=== PATIENT | female | born 1975 | race Hispanic/Latino ===

== ENCOUNTER 2025-02-06 03:27 | Emergency (ER) | payer BC ==
[~2025-02-06] VITALS: Ht 167.6 cm; Wt 54.4 kg
--- NOTE | 2025-02-06 03:59 | NUR ---
PATIENT REPORTS CALLED AMBULANCE BECAUSE SHE WANTED TO HAVE HER SURGICAL WOUND EVALUATED. REPORTS HAD BLADDER SURGERY AT [facility] AND TOLD THE EMS MEDICS TO TRANSP[place] [facility] [place] BROUGHT HER HERE. SHE WANTED TO GO THERE BECAUSE THAT IS WHERE HER SURGERY WAS DONE
--- NOTE | 2025-02-06 04:47 | ERN ---
General Chief Complaint: Abdominal Pain Stated Complaint: ABDOMINAL PAIN Time Seen by MD: 03:44 Source: patient History of Present Illness Initial Comments Patient difficult to understand her voices very soft and she speaks in very short sentences she seems to be inebriated as well. She is a 45-year-old female who was found by police wandering and they brought her here because she was complaining of abdominal pain. She has been drinking. She recently had surgery at [facility] to her bladder but she does not know what type of surgery it is she still has basia in her large midline incision and she would like them to be removed. In addition to complaining of abdominal pain she says she is dizzy and lightheaded. Past medical history includes hepatitis C right leg orthopedic surgery and multiple . Timing/Duration: unsure Allergies: Coded Allergies: No Known Allergies (Unverified Allergy, Unknown, 02/06/25) Past Medical History Past Medical History: No Pertinent History Past Surgical History: None, Surgical History Other: Bladder Surgery, Right leg orthopedic surg Constitutional: (-) chills, (-) diaphoresis, (-) fever, (-) malaise, (-) weakness, (-) other documentation EENTM: (-) eye pain, (-) blurred vision, (-) tearing, (-) double vision, (-) ear pain, (-) ear discharge, (-) nose pain, (-) nose congestion, (-) throat pain, (-) Throat swelling, (-) mouth pain, (-) tooth pain, (-) mouth swelling, (-) other documentation Respiratory: (-) cough, (-) orthopnea, (-) short of breath, (-) stridor, (-) wheezing, (-) other documentation Cardiovascular: (+) chest pain Gastrointestinal/Abdominal: (+) abdominal pain, (+) abdominal distention; (-) nausea, (-) vomiting, (-) diarrhea, (-) constipation, (-) rectal bleeding, (-) dark stool/melena, (-) other documentation Musculoskeletal: (-) Neck pain, (-) back pain, (-) Flank Pain, (-) joint pain, (-) joint swelling, (-) muscle pain, (-) muscle stiffness, (-) gout, (-) other documentation Neuro: (+) altered mental status Physical Exam General Appearance comment Patient asleep in the bed difficult to arouse falling asleep almost immediately afterwards. Head/Face Trauma: No Eye: bilateral eye normal inspection, bilateral eye PERRL, bilateral eye EOMI Ear, Nose, Throat: (+) hearing grossly normal Neck: (+) normal inspection, (+) supple Respiratory: (+) chest non-tender, (+) lungs clear, (+) well ventilated Heart: (+) regular Vascular: (+) no edema Gastrointestinal: (+) soft, (+) bowel sound present, (+) distended, (+) tender Results Laboratory and Microbiology Lab and Micro Result Laboratory Tests Test 02/06/25 05:08 02/06/25 05:54 02/06/25 12:10 White Blood Count 2.3 K/uL (4.8-10.8) L Red Blood Count 2.92 MIL/uL (4.00-5.50) L Hemoglobin 9.7 g/dL (12.0-16.0) L Hematocrit 27.9 % (36-48) L Mean Corpuscular Volume 95.5 fL (79-99) Mean Corpuscular Hemoglobin 33.2 pg (27.0-33.0) H Mean Corpuscular Hemoglobin Concent 34.8 g/dL (32.0-36.0) Red Cell Distribution Width 15.2 % (11.0-15.5) Platelet Count 87 K/uL (130-400) L Mean Platelet Volume 13.1 fL (7.5-10.5) H Immature Granulocyte % (Auto) 0.0 % (0-1) Neutrophils (%) (Auto) 46.7 % (40.0-77.0) Lymphocytes (%) (Auto) 31.9 % (21.0-51.0) Monocytes (%) (Auto) 15.3 % (3.0-13.0) H Eosinophils (%) (Auto) 4.8 % (0.0-8.0) Basophils (%) (Auto) 1.3 % (0.0-5.0) Neutrophils # (Auto) 1.1 K/uL (1.8-7.7) L Lymphocytes # (Auto) 0.7 K/uL (1.0-4.8) L Monocytes # (Auto) 0.4 K/uL (0.1-1.0) Eosinophils # (Auto) 0.11 K/uL (0.00-0.70) Basophils # (Auto) 0.03 K/uL (0.00-0.20) Absolute Immature Granulocyte (auto 0.00 K/uL (0-1) Segmented Neutrophils % 55 % (40-70) Band Neutrophils % 1 % (0-2) Lymphocytes % (Manual) 29 % (22-44) Monocytes % (Manual) 8 % (2-9) Eosinophils % (Manual) 5 % (1-6) Nucleated Red Blood Cells 0.0 % (0.0-0.19) Differential Comment MANUAL DIFFERENTIAL Reactive Lymphocytes 2 % (0-0) H White Cell Morphology Comment See comments Platelet Morphology Comment DECREASED Red Blood Cell Morphology ANISO 1+ Sodium Level 138 mmol/L (136-145) Potassium Level 3.4 mmol/L (3.5-5.1) L Chloride Level 101 mmol/L (101-111) Carbon Dioxide Level 26 mmol/L (21-32) Blood Urea Nitrogen 13 mg/dL (7-18) Creatinine 0.7 mg/dL (0.5-1.0) Glomerular Filtration Rate Calc 108 mL/min (>90) Random Glucose 92 mg/dL (70-105) Lactic Acid Level 0.8 mmol/L (0.8-2.5) Total Calcium 8.8 mg/dL (8.5-10.1) Total Bilirubin 1.2 mg/dL (0.2-1.0) H Aspartate Amino Transf (AST/SGOT) 67 U/L (10-37) H Alanine Aminotransferase (ALT/SGPT) 31 U/L (12-78) Alkaline Phosphatase 56 U/L (50-136) Total Protein 8.1 g/dL (6.0-8.3) Albumin 4.5 g/dL (3.5-5.0) Lipase 130 U/L (16-77) H Serum Test, Qualitative NEGATIVE (NEGATIVE) Serum Alcohol < 3 mg/dL (0-10) Urine Color LIGHT-ORANGE (YELLOW) Urine Appearance TURBID (CLEAR) Urine pH 5.5 (5.0-8.0) Urine Specific [place] 1.017 (1.001-1.031) Urine Protein 50 mg/dL (NEGATIVE) H Urine Glucose (UA) NEGATIVE mg/dL (NEGATIVE) Urine Ketones NEGATIVE mg/dL (NEGATIVE) Urine Occult Blood LARGE (NEGATIVE) H Urine Nitrate NEGATIVE (NEGATIVE) Urine Bilirubin NEGATIVE mg/dL (NEGATIVE) Urine Urobilinogen 0.2 mg/dL (0.2-1.0) Urine Leukocyte Esterase 500 Kavin/uL (NEGATIVE) H Urine RBC TNTC /HPF (0-1) H Urine WBC TNTC /HPF (0-1) H Urine WBC Clumps (Auto) MOD /HPF (0-1) Urine Squamous Epithelial Cells MANY /HPF (0-2) Urine Bacteria None /HPF (None Seen) Urine Yeast MANY /HPF (None Seen) Urine Opiates Screen NEGATIVE (NEGATIVE) Urine Barbiturates Screen NEGATIVE (NEGATIVE) Urine Phencyclidine Screen NEGATIVE (NEGATIVE) Urine Amphetamines Screen NEGATIVE (NEGATIVE) Urine Benzodiazepines Screen POSITIVE (NEGATIVE) H Urine Cocaine Screen POSITIVE (NEGATIVE) H Urine Marijuana (THC) Screen POSITIVE (NEGATIVE) H Ammonia 22 umol/L (11-32) Labs Reviewed?: Yes MDM Patient admitted with the abdominal pain. Differential includes post postopera tive pain, pancreatitis, bowel obstruction, UTI, pancreatitis. I will order a broad variety of laboratory studies to try and figure out what is causing her pain. I may need to get a CT scan but I will start with a KUB 1st. KUB is benign. Patient does have an elevated lipase activity. She had urinary retention with a proximally 600 cc in her bladder and a Grady catheter was isabel fernandez UA is positive for leukocyte esterase activity. She may have a UTI. I will give her some Ancef two cover that. Urine tox screen was positive for THC benzos and cocaine. Surprisingly alcohol was negative. I will wait for the patient body to clear the intoxicants and repeat the examination of her abdomen. The pain very were all may have been from the bladder distention. I also do not want to DC the patient's surgical basia while she is still inebriated with cocaine benzos and THC. MDM: Differential diagnosis: Polysubstance abuse, urinary tract infection, Rationale: Tests considered and ordered secondary to shared decision making include: labs, ECG and radiology Previous outside records reviewed: Old ER visits. Risk of complication and/or morbidity or mortality of patient management: None Medications-Per medication reconciliation Need for hospitalization: Patient does meet criteria for hospitalization. Need for emergency major/minor surgery: No There are no social concerns with this patient. Prescription drug management Prescriptions will include symptomatic care Patient's prior external medical records from other ER visits were reviewed by me as indicated. Prior testing and results from previous visits were reviewed. Prior tests were taken into account with medical decision making and resource utilization, independent historian/historians were used to obtain complete medical history. I independently interpreted the test that were performed, results were reviewed by me and considered findings on radiology if ordered. Medical management and examination interpretation discussions were had by me with other qualified healthcare professionals as indicated for the patient's care. She will be admitted under the care of hospitalist group for ongoing management. Patient will be transferred to [facility] due to a previous surgery performed by [facility] trauma surgeon. Patient poor historian patient was here for several hours due to unable to know who performed surgery and if surgery was actually performed. [facility] finally disclose that surgery was performed there so patient will be transferred over for ongoing evaluation and management. Dr. Mata trauma surgeon consulted as well as Dr. Zechariah REICH MD. ED Course Orders Procedure Category Date Status Time Abd 1vw RAD 02/06/25 Resulted 04:47 Cbc With Differential LAB 02/06/25 Complete 04:47 Comprehensive LAB 02/06/25 Complete Metabolic Panel 04:47 Lactic Acid LAB 02/06/25 Complete 04:47 Urinalysis Profile LAB 02/06/25 Complete 04:47 Lipase LAB 02/06/25 Complete 04:47 Alcohol, Blood LAB 02/06/25 Complete 04:47 Drug Screen Urine LAB 02/06/25 Complete 04:47 Lactated Ringers PHA 02/06/25 Complete 1000ml (Lactated 04:47 Testing, LAB 02/06/25 Complete Serum Hcg 05:09 Manual Differential LAB 02/06/25 Complete 05:08 Nurse Driven Grady RILEY 02/06/25 In Process Removal Pro 06:00 Culture Urine ROSARIO 02/06/25 In Process 06:17 Cefazolin Sodium 1 Gm PHA 02/06/25 Complete Vial (Ancef 1 Gm V 06:29 Iohexol (Omnipaque) PHA 02/06/25 Complete 10:01 Ct Abdomen/Pelvis W/O CT 02/06/25 Resulted Contrast 10:23 Ct Head/Brain W/O CT 02/06/25 Resulted Contrast 10:23 Ammonia LAB 02/06/25 Complete 11:38 Zosyn 3.375gm+Ns 50ml PHA 02/06/25 Complete (Zosyn 3.375gm+Ns 12:00 Us Pelvic Non-Ob US 02/06/25 Resulted Limited 11:40 0.9%Nacl 1000ml (Ns PHA 02/06/25 In Process 1000ml) 15:00 0.9%Nacl 1000ml (Ns PHA 02/06/25 In Process 1000ml) 17:00 Current Medications Medications (Trade) Dose Ordered Sig/Vielka Route PRN Reason Start Time Stop Time Status Last Admin Dose Admin Cefazolin Sodium (ANCEF 1 gm vial) 1 gm ONCE STAT IVP 02/06/25 06:29 02/06/25 06:32 DC 02/06/25 06:38 Iohexol (Omnipaque) 75 ml STK-MED ONCE IV 02/06/25 10:01 02/06/25 10:01 DC Lactated Ringer's (Lactated Ringers 1000ml) 1,000 ml BOLUS STAT IV 02/06/25 04:47 02/06/25 04:51 DC 02/06/25 04:57 Piperacillin Sod/ Tazobactam Sod (Zosyn 3.375gm+NS 50ml) 3.375 gm ONCE ONCE IV 02/06/25 12:00 02/06/25 12:01 DC 02/06/25 12:32 Sodium Chloride 1,000 ml @ 0 mls/hr Q0M IV 02/06/25 15:00 03/08/25 14:59 02/06/25 14:47 Sodium Chloride 1,000 ml @ 110 mls/hr Q9H6M IV 02/06/25 17:00 03/08/25 16:59 02/06/25 17:22 Vital Signs Date Time Temp Pulse Resp B/P (MAP) Pulse Ox O2 Delivery O2 Flow Rate FiO2 02/06/25 17:38 97.5 62 14 102/67 97 Room Air* 0 02/06/25 16:24 97.5 62 14 97/56 98 Room Air* 0 02/06/25 14:03 88/58 Room Air* 0 02/06/25 13:52 97.5 61 14 84/46 96 Room Air* 0 02/06/25 11:40 97.0 61 14 96/61 100 Room Air* 0 02/06/25 09:51 97.0 59 15 90/55 100 Room Air* 0 02/06/25 07:28 97.0 64 15 103/62 100 Room Air* 0 02/06/25 06:01 98.2 68 18 109/72 99 Room Air* 0 02/06/25 03:55 68 17 102/56 100 Room Air* 0 02/06/25 03:29 98.1 74 16 102/66 99 Room Air 0 DX & DISP Disposition: Transfer Decision to Admit Time: 17:52 Departure Impression: Primary Impression: Polysubstance (excluding opioids) dependence Additional Impression: UTI (urinary tract infection) Condition: Stable Referrals: SELF,REFERRAL (PCP) JI STILL MD February 06, 2025 04:47 AVRIL STONE MD February 06, 2025 10:59
[2025-02-06] MEDS: LACTATED RINGERS 1000ML IV STA (04:57)
[2025-02-06 05:27] LABS: BASOPHILS # (AUTO) 0.03 K/uL (0.00-0.20); BASOPHILS % (AUTO) 1.3 % (0.0-5.0); EOSINOPHILS # (AUTO) 0.11 K/uL (0.00-0.70); EOSINOPHILS % (AUTO) 4.8 % (0.0-8.0); HEMATOCRIT 27.9 % (36-48); LYMPHOCYTES # (AUTO) 0.7 K/uL (1.0-4.8); LYMPHOCYTES % (AUTO) 31.9 % (21.0-51.0); MEAN CORPUSCULAR HEMOGLOBIN 33.2 pg (27.0-33.0); MEAN CORPUSCULAR HGB CONC 34.8 g/dL (32.0-36.0); MEAN CORPUSCULAR VOLUME 95.5 fL (79-99); MONOCYTES # (AUTO) 0.4 K/uL (0.1-1.0); MONOCYTES % (AUTO) 15.3 % (3.0-13.0); NEUTROPHILS # (AUTO) 1.1 K/uL (1.8-7.7); NEUTROPHILS % (AUTO) 46.7 % (40.0-77.0); PLATELET COUNT (AUTO) 87 K/uL (130-400); RED BLOOD CELL COUNT(AUTO) 2.92 MIL/uL (4.00-5.50); RED CELL DISTRIBUTION WIDTH 15.2 % (11.0-15.5); WHITE BLOOD COUNT (AUTO) 2.3 K/uL (4.8-10.8)
--- NOTE | 2025-02-06 05:36 | NUR ---
BLADDER SCAN DONE RESULT>[id number]
[2025-02-06 05:43] LABS: CARBON DIOXIDE 26 mmol/L (21-32); CHLORIDE 101 mmol/L (101-111); CREATININE 0.7 mg/dL (0.5-1.0); GLOMERULAR FILTR. RATE CALC 108 mL/min (>90); GLUCOSE,RANDOM 92 mg/dL (70-105); POTASSIUM 3.4 mmol/L (3.5-5.1); SODIUM SERUM 138 mmol/L (136-145); UREA NITROGEN, BLOOD 13 mg/dL (7-18)
[2025-02-06 05:47] LABS: ALANINE AMINOTRANSFERASE 31 U/L (12-78); ALBUMIN 4.5 g/dL (3.5-5.0); ALCOHOL, BLOOD < 3 mg/dL (0-10); ASPARTATE AMINOTRANSFERASE 67 U/L (10-37); BILIRUBIN,TOTAL 1.2 mg/dL (0.2-1.0); TOTAL PROTEIN, SERUM 8.1 g/dL (6.0-8.3)
--- NOTE | 2025-02-06 05:50 | NUR ---
ASSUMED PT CARE AT THIS TIME
[2025-02-06 05:58] LABS: BAND NEUTROPHILS % (MANUAL) 1 % (0-2); EOSINOPHILS % (MANUAL) 5 % (1-6); LYMPHOCYTES % (MANUAL) 29 % (22-44); MONOCYTES % (MANUAL) 8 % (2-9); REACTIVE LYMPHOCYTES 2 % (0-0); SEGMENTED NEUTROPHILS % 55 % (40-70); TOTAL CELLS COUNTED 100
[2025-02-06 06:00] LABS: MAN.DIFF COMMENT-IMPRESSION MANUAL DIFFERENTIAL
[2025-02-06 06:01] LABS: PLATELET MORPHOLOGY COMMENT DECREASED
[2025-02-06 06:16] LABS: AMPHET/METH SCREEN,URINE NEGATIVE (NEGATIVE); BARBITURATE SCREEN, URINE NEGATIVE (NEGATIVE); BENZODIAZEPINES SCREEN,URINE POSITIVE (NEGATIVE); CANNABINOID SCREEN,URINE POSITIVE (NEGATIVE); COCAINE SCREEN,URINE POSITIVE (NEGATIVE); OPIATE SCREEN,URINE NEGATIVE (NEGATIVE); PHENCYCLIDINE SCREEN,URINE NEGATIVE (NEGATIVE)
[2025-02-06 06:17] LABS: ADD UA MICROSCOPIC YES; APPEARANCE,URINE TURBID (CLEAR); BILIRUBIN,URINE NEGATIVE (NEGATIVE); COLOR,URINE LIGHT-ORANGE (YELLOW); GLUCOSE, URINE (UA) NEGATIVE (NEGATIVE); KETONES,URINE NEGATIVE (NEGATIVE); LEUKOCYTE ESTERASE ,URINE 500 Leu/uL (NEGATIVE); NITRATE,URINE NEGATIVE (NEGATIVE); OCCULT BLOOD,URINE LARGE (NEGATIVE); PH,URINE 5.5 (5.0-8.0); PROTEIN,URINE 50 mg/dL (NEGATIVE); UROBILINOGEN,URINE 0.2 mg/dL (0.2-1.0)
[2025-02-06 06:18] LABS: MUCUS,URINE FEW LPF (None Seen); RBC,URINE TNTC /HPF (0-1); SQUAMOUS EPITHELIAL CELL,UR MANY /HPF (0-2); WBC CLUMP MOD /HPF (0-1); WBC,URINE TNTC /HPF (0-1); YEAST,URINE BUDDING MANY /HPF (None Seen)
[2025-02-06] MEDS: ceFAZolin SODIUM 1 GM VIAL IVP STA (06:38)
--- NOTE | 2025-02-06 09:25 | HMCIMG ---
ABD 1VW HISTORY: Pain COMPARISON: None FINDINGS: A frontal projection of the abdomen was obtained. There is levoscoliosis. A nonspecific bowel gas pattern is seen. Fecal material is seen in the colon. Degenerative changes of the thoracolumbar spine are noted. IMPRESSION: 1. A nonspecific bowel gas pattern is seen.
[2025-02-06] MEDS ORDERED: IOHEXOL-350 75 ML VIAL IV ONE (10:01)
--- NOTE | 2025-02-06 10:24 | NUR ---
CT ON HOLD ATT, PT UNABLE TO SIGN. MD STONE AWARE Addendum: 02/06/25 at 1025 by CHRISTOPHE QUARLES AMS
--- NOTE | 2025-02-06 11:30 | HMCIMG ---
CT ABDOMEN/PELVIS W/O CONTRAST HISTORY: UTI COMPARISON: None TECHNIQUE: Multiple sequential axial images of the abdomen and pelvis were obtained from the dome of the diaphragm through symphysis pubis. Patient was not given contrast through intravenous route. Oral contrast was not given. FINDINGS: No pleural effusion is seen bilaterally. Mild bilateral pulmonary infiltrates are seen. Degenerative changes of the thoracolumbar spine are present. The heart is not enlarged. Liver measures 17 cm which is enlarged. Spleen measures 16 cm which is enlarged. Gallstones are seen in the gallbladder. Adrenal glands and pancreas are unremarkable. There is no evidence of hydronephrosis bilaterally. No evidence of renal stone is seen. Fecal material is seen in the colon. There are normal size retroperitoneal and mesenteric lymph nodes. No ascites is seen. Atherosclerotic changes are present. Pelvic sidewalls are symmetric bilaterally. There is right adnexal cystic mass measuring 7.3 x 6 cm suggested of right ovarian cyst with cystic neoplasm not excluded. Bladder is poorly distended with Grady catheter and wall thickening. IMPRESSION: 1. Hepatosplenomegaly. Gallstones in the gallbladder. Right adnexal cystic mass measuring 7.3 x 6 cm. Bilateral pulmonary infiltrates. CT was performed with one or more following dose reduction techniques: automated exposure control, adjustment of the mA and kv according to patient's size, or use of a iterative reconstruction technique.
--- NOTE | 2025-02-06 11:31 | HMCIMG ---
CT HEAD/BRAIN W/O CONTRAST HISTORY: Confusion COMPARISON: None TECHNIQUE: Multiple sequential axial images of the head were obtained from the base of the skull through vertex. Patient was not given contrast through intravenous route. FINDINGS: The ventricles and extraventricular CSF spaces are dilated consistent with cerebral atrophy. Nonspecific white matter changes seen. There is no midline shift, mass effect or herniation. No acute intracranial bleed is seen. Visualized portion of the paranasal sinuses are grossly within normal limits. IMPRESSION: 1. No acute intracranial bleed is seen. 2. Atrophy with white matter changes. CT was performed with one or more following dose reduction techniques: automated exposure control, adjustment of the mA and kv according to patient's size, or use of a iterative reconstruction technique.
[2025-02-06] MEDS: ZOSYN 3.375GM +NS 50ML IV ONE (12:32)
--- NOTE | 2025-02-06 12:34 | HMCIMG ---
US PELVIC NON-OB LIMITED HISTORY: This COMPARISON: None TECHNIQUE: Transabdominal pelvic ultrasound study was performed. FINDINGS: The uterus has been removed. Left ovary is not well seen due to overlying bowel gas. There is cystic mass in the right adnexa measuring 7.5 x 6.2 x 6.5 cm may be within the right ovary with ovarian cyst. No free fluid is seen in the cul-de-sac. IMPRESSION: 1. Possible right ovarian cyst versus cystic mass measuring 6.8 x 6 x 5.9 cm.
[2025-02-06] MEDS: 0.9%NACL 1000ML 1,000 ML IV SCH ×2 (14:47→17:22)
--- NOTE | 2025-02-06 15:21 | NUR ---
[facility] RECORDS DEPARTMENT CALLED, WILL SEND FAX OVER TO US, HOUSE SUP MADE AWARE
--- NOTE | 2025-02-06 15:24 | NUR ---
COMPUTER SYSTEMS ARCHITECT [place] MADE AWARE REQUEST FOR MEDICAL RECORDS STILL PENDING TO PLEASE FOLLOW UP
--- NOTE | 2025-02-06 16:05 | NUR ---
TRANSF[place] REQUEST[place] [facility] [place] C[place] PER DR STONE. MANDY RN
--- NOTE | 2025-02-06 16:26 | NUR ---
Called [facility] medical records department ph: [phone], opt 1, opt 4. Medical Records does not have patient with above name. Identified patient by last 4 of SSN and . Patient's DOS was 01/20/25. Medical Records requesting a new Records request form to be faxed to [phone] with name "Lou Ewing". Spelling provided by [facility] Medial Records. Updated patient's nurse and [facility] [place] to send updated form to fax #: [phone] onel reminded that the department closes at 16:30.
--- NOTE | 2025-02-06 17:00 | NUR ---
TRANSFER , CALL PLACE TO [facility] [phone] SPOKE WITH JOSE INTAKE NURSE INFORMATION PROVIDED AND WILL CALL BACK. MANDY BOO
--- NOTE | 2025-02-06 17:55 | NUR ---
TRANSFER CALL BACK FROM TRANSFER CENTER WITH [place] [facility] PRIMARY NURSE TO CALL REPORT TO [phone] AND EMS WHEN READY. MANDY BOO
--- NOTE | 2025-02-06 18:24 | NUR ---
REPORT GIVEN TO EMA BECK AT [facility].
--- NOTE | 2025-02-06 18:27 | NUR ---
[facility] INFROMED OF ER TO EER TRANSFER TO [facility].
[2025-02-06 20:20] VITALS: BP 95/54; PULSE 68; RESP 16; TEMP 98.2; O2SAT 99
== END 2025-02-06 20:38 | disposition short-term general hospital (02) ==
LOC: EDBD 03:27 → EDH 03:27
DX: F19.20 Other psychoactive substance dependence, uncomplicated (principal); N39.0 Urinary tract infection, site not specified; R33.9 Retention of urine, unspecified; R42 Dizziness and giddiness; Z86.19 Personal history of other infectious and parasitic diseases; Z98.890 Other specified postprocedural states
CPT/HCPCS: 99285; 70450; 96365; 96361; 76857; 96366; 96367; 80053; 80305; 84703; 82140; 83690; 85025; 87086; 83605; 36415; 74018; 74176; 81001; 51702; J7120; J0690; J7030 ×2; J2543; Q9967